=== PATIENT | female | born 2005 | race Caucasian/White ===

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

== ENCOUNTER 2024-10-20 20:00 | Inpatient (IN) | payer MEDICAID ==
[2024-10-20] MEDS ORDERED: Water For Irrigation,Sterile 1,000 ML Container IRR PRN (20:32)
[2024-10-20] MEDS ORDERED: Terbutaline 1 MG/ML SDV SUBCUT PRN (20:32)
[2024-10-20] MEDS ORDERED: Methylergonovine 0.2 MG/1 ML Amp IM PRN (20:32)
[2024-10-20] MEDS ORDERED: Sodium Chloride 0.9% 2.5 ML Syringe FLUSH PRN (20:32)
[2024-10-20] MEDS ORDERED: Misoprostol 25 MCG (1/4 of 100 MCG) Tab VAG PRN (20:32)
[2024-10-20] MEDS ORDERED: Carboprost Tromethamine 250 MCG/1 mL Vial IM PRN (20:32)
[2024-10-20] MEDS ORDERED: Sodium Chloride 0.9% 10 ML Syringe FLUSH PRN (20:32)
[2024-10-20] MEDS ORDERED: Misoprostol 200 MCG Tab PO PRN (20:32)
[2024-10-20] MEDS ORDERED: Butorphanol 2 MG/ML SDV IVPUSH PRN (20:32)
[2024-10-20] MEDS ORDERED: Sodium Chloride 0.9% 20 ML SDV IV PRN (20:32)
[2024-10-20] MEDS ORDERED: Lidocaine 1% 50 ML MDV INJECT PRN (20:32)
[2024-10-20] MEDS ORDERED: Oxytocin/0.9 % Sodium Chloride 30 UNIT/500 ML BAG IV SCH ×2 (20:45)
[2024-10-20] MEDS: Lactated Ringers 1,000 ML IV SCH (20:58)
[2024-10-20] MEDS: Ampicillin 2 GM in Sodium Chloride 0.9% 100 ML IV ONE (21:23)
[2024-10-20 21:24] LABS: HEMATOCRIT 32.9 % (37.0-47.0); HEMOGLOBIN 10.8 g/dL (12.0-16.0); MEAN CORPUSCULAR HEMOGLOBIN 26.9 pg (28.0-32.0); MEAN CORPUSCULAR HGB CONC 32.8 g/dL (32.0-36.0); PLATELET COUNT,PLT 314 K/uL (150-400); RED BLOOD CELL COUNT 4.01 M/uL (4.10-5.30); WHITE BLOOD CELL COUNT,WBC 11.05 K/uL (4.5-13.5)
[2024-10-20] MEDS: Misoprostol 25 MCG (1/4 of 100 MCG) Tab VAG PRN (21:26)
[2024-10-21] MEDS ORDERED: Phenylephrine HCl In 0.9% NaCl 1 MG/10 ML Syringe IVPUSH PRN (00:23)
[2024-10-21] MEDS ORDERED: ePHEDrine 50 MG/ML SDV IVPUSH PRN (00:23)
[2024-10-21] MEDS ORDERED: dexmedeTOMIDine HCl 200 MCG/2 ML SDV EPIDUR SCH (00:30)
[2024-10-21] MEDS: Ampicillin 1 GM in Sodium Chloride 0.9% 50 ML IV SCH (01:33)
[2024-10-21] MEDS: Ropivacaine HCl/PF 400 MG in Premix Bag 1 BAG EPIDUR SCH (08:46)
[2024-10-21] MEDS: Oxytocin 10 Units/1 ML SDV IM ONE (12:45)
[2024-10-21] MEDS ORDERED: Docusate Sodium 100 MG Cap PO PRN (13:17)
[2024-10-21] MEDS ORDERED: oxyCODONE 5 MG Tab PO PRN (13:17)
[2024-10-21] MEDS ORDERED: Lanolin 100% Cream 7 GM Tube TOP PRN (13:17)
[2024-10-21] MEDS ORDERED: Acetaminophen 500 MG Tab PO PRN (13:17)
[2024-10-21] MEDS ORDERED: Ibuprofen 800 MG Tab PO PRN (13:17)
[2024-10-21 13:47] LABS: PH,UMBILICAL ARTERIAL 7.275 (7.18-7.38); PH,UMBILICAL VENOUS 7.344 (7.25-7.45)
[2024-10-21] MEDS: Witch Hazel Medicated Pads 40/Jar TOP PRN (16:00)
[2024-10-21] MEDS: Benzocaine/Menthol 20%-0.5% Spray 78 GM Cannister TOP PRN (16:01)
[2024-10-22 05:46] LABS: HEMATOCRIT 32.3 % (37.0-47.0); HEMOGLOBIN 10.5 g/dL (12.0-16.0)
== END 2024-10-22 16:30 | disposition home or self-care (01) | DRG 807 ==
LOC: MW.OB 20:00 → OBSVTOIN 10-21 13:17 → MW.OB 10-21 16:42
PROVIDERS: ADMIT Obstetrics & Gynecology; ATTEND Obstetrics & Gynecology
PROC: 10E0XZZ Delivery of Products of Conception, External Approach (ICD-10-PCS; principal; 2024-10-21)
PROC: 0HQ9XZZ Repair Perineum Skin, External Approach (ICD-10-PCS; 2024-10-21)
PROC: 3E0R3BZ Introduction of Anesthetic Agent into Spinal Canal, Percutaneous Approach (ICD-10-PCS; 2024-10-21)
PROC: 00HU33Z Insertion of Infusion Device into Spinal Canal, Percutaneous Approach (ICD-10-PCS; 2024-10-21)
PROC: 10907ZC Drainage of Amniotic Fluid, Therapeutic from Products of Conception, Via Natural or Artificial Opening (ICD-10-PCS; 2024-10-21)
PROC: 3E0P7VZ Introduction of Hormone into Female Reproductive, Via Natural or Artificial Opening (ICD-10-PCS; 2024-10-21)
DX: O99.214 Obesity complicating childbirth (principal); Z37.0 Single live birth; O99.824 Streptococcus B carrier state complicating childbirth; O70.0 First degree perineal laceration during delivery; Z3A.39 39 weeks gestation of pregnancy; Z14.1 Cystic fibrosis carrier
CPT/HCPCS: 01967; 36415; 51702; 59025; 59409; 82803; 85014; 85018; 85027; 86592; 86850; 86900; 86901; A9270-GY; J0290; J2590; J2795; J7120